=== PATIENT | female | born 1985 | race Two or more races ===

== ENCOUNTER 2019-01-08 06:15 | Inpatient (IN) | payer OTHER ==
[2019-01-08] MEDS: ELECTROLYTE-148 SOLN 1,000 ML IV SCH (06:30)
[2019-01-08 06:48] VITALS: BMI 27.1
[2019-01-08] MEDS ORDERED: OXYTOCIN 20 UNITS in 0.9% NS 40 UNIT/2,000 ML INFUS.BAG IV ONE (07:33)
[2019-01-08] MEDS ORDERED: DEXAMETHASONE SOD PHOSPHATE 4 MG/1 ML VIAL ONE (07:37)
[2019-01-08] MEDS ORDERED: PHENYLEPHRINE HCL 10 MG/1 ML SINGLE DOSE VIAL ONE (07:37)
[2019-01-08] MEDS ORDERED: morphine SULFATE/PF 0.5 MG/ML (2cc Syringe - QUVA) ONE (07:41)
[2019-01-08] MEDS ORDERED: CITRIC ACID/SODIUM CITRATE 30 ML UNIT-DOSE CUP PO ONE (07:49)
[2019-01-08] MEDS ORDERED: OXYTOCIN 10 UNITS/ML VIAL ONE (08:15)
--- NOTE | 2019-01-08 09:21 | HP ---
Past Medical History - Admission Chief Complaint: repeat lt c s History of Present Illness: repeat lt c s History Source: Patient Limitations to Obtaining History: No Limitations - Past Medical History URGENT CARE: No: Alzheimer's, CVA, Dementia, Migraine, Multiple Sclerosis, Peripheral Neuropathy, Parkinson's, Seizure, Syncope, TIA, Vertigo, Other Cardiovascular: No: AFIB, Aneurysm, Aortic Insufficiency, Aortic Stenosis, CAD, CHF, Deep Vein Thrombosis, HTN, Hyperlipdemia, RI, Mitral Insufficiency, Mitral Stenosis, Murmur, Pulmonary Hypertension, Other Pulmonary: No: Asthma, Bronchitis, Cancer, COPD, O2 Dependent, Pneumonia, Previously Intubated, Pulmonary Embolus, Pulmonary Fibrosis, Sleep Apnea, Other Gastrointestinal: No: Ascites, Cancer, Constipation, Crohn's Disease, Diverticulitis, Diverticulosis, Esophageal Varices, Gastritis, GERD, GI Bleed, Hemorrhoids, Hiatal Hernia, Inflamatory Bowel Disease, Irritable Bowel Disease, Pancreatitis, Peptic Ulcer Disease, Ulcerative Colitis, Other Hepatobiliary: No: Cirrhosis, Cholelithiasis, Cholecystitis, Choledocholithiasis , Hepatitis A, Hepatitis B, Hepatitis C, Other Renal/: No: Renal Failure, Renal Inusuff, BPH, Cancer, Hematuria, Hemodialysis , Neurogenic Bladder, Renal Calculi, UTI, Other Reproductive: No: Ectopic , Endometriosis, Fibroids, PID, Polycystic Ovary Syndrome, Postmenopausal, Other ...: 2 ...Para: 1 ...Term: 1 ...: 0 ...Spon : 0 ...Induced : 0 ...Multiple Gestation: 0 ...LMP: 03/23/18 ...EDC by Sono: 01/11/19 Heme/Onc: No: Anemia, B12 Deficiency, Bleeding Disorder, Cancer, Current Chemotherapy, Current Radiation Therapy, Hemochromatosis, Hypercoaguable State, Myeloproliferative Synd, Sickle Cell Disease, Sickle Cell Trait, Thrombocytopenia, Other Infectious Disease: No: AIDS, C-Diff, Herpes Zoster, HIV, MRSA, STD's, Tuberculosis, VREF, Other Psych: No: Addictions, Anxiety, Bipolar, Depression, Panic, Psychosis, Schizophrenia, Other Musculoskeletal: No: Bursitis, Chronic low back pain, Hemiparesis, Hemiplegia, Osteoarthritis, Paraplegia, Other Rheumatology: No: Fibromyalgia, Gout, Lupus, Rheumatoid Arthritis, Sarcoidosis, Vasculitis, Other ENT: No: Allergic Rhinitis, Sinusitis, Other Endocrine: No: Everetts's Disease, Erlanger's Disease, Diabetes Insipidus, Diabetes Mellitus, Hyperparathyroidism, Hyperthyroidism, Hypothyroidism, Osteopenia, SIADH, Other Dermatology: No: Basal Cell, Cellulitis, Eczema, Melanoma, Psoriasis, Squamous Cell, Other - Past Surgical History Past Surgical History: Yes: Hx Myomectomy: No Hx Transabdominal Cerclage: No - Advance Directives Advance Directives: Yes: Living Will - Smoking History Smoking history: Never smoked Have you smoked in the past 12 months: No - Alcohol/Substance Use Hx Alcohol Use: No History of Substance Use: reports: None - Social History Usual Living Arrangement: Yes: With Spouse Do you think of yourself as: Straight/Heterosexual ADL: Independent History of Recent Travel: No Home Medications - Allergies Allergies/Adverse Reactions: Allergies Allergy/AdvReac Type Severity Reaction Status Date / Time No Known Allergies Allergy Verified 01/08/19 07:02 - Home Medications Home Medications: Ambulatory Orders Pnv No.95/Ferrous Fum/Folic AC [ Vitamin Tablet] 1 each PO DAILY Family Medical History Family History: Denies Review of Systems - Review of Systems Constitutional: reports: No Symptoms Eyes: reports: No Symptoms HENT: reports: No Symptoms Neck: reports: No Symptoms Cardiovascular: reports: No Symptoms Respiratory: reports: No Symptoms Gastrointestinal: reports: No Symptoms Genitourinary: reports: No Symptoms Breasts: reports: No Symptoms Reported Musculoskeletal: reports: No Symptoms Integumentary: reports: No Symptoms Neurological: reports: No Symptoms Endocrine: reports: No Symptoms Hematology/Lymphatic: reports: No Symptoms Psychiatric: reports: No Symptoms Physical Exam - Maternity Vital Signs: Vital Signs Temperature 98.6 F 01/08/19 06:15 Pulse Rate 106 H 01/08/19 06:15 Respiratory Rate 18 01/08/19 06:15 Blood Pressure 99/64 01/08/19 06:15 O2 Sat by Pulse Oximetry (%) Constitutional: Yes: Well Nourished, No Distress, Calm Eyes: Yes: WNL, Conjunctiva Clear, EOM Intact HENT: Yes: WNL, Atraumatic, Normocephalic Neck: Yes: WNL, Supple, Trachea Midline Cardiovascular: Yes: WNL, Regular Rate and Rhythm Lungs: Clear to auscultation Breast(s): Yes: WNL - Abdominal Exam/OB Fundal Height: 38 Number of Fetuses: Single Presentation: Vertex Contractions: Yes Regularity: Irregular Intensity: Mild Monitor Mode: External Heart Rate Location: [facility] Category: I Accelerations: Uniform Decelerations: None - Vaginal Exam/OB Vaginal Bleediing: No Speculum Exam: No Dilatation (cm): 1 Amniotic Membrane Status: Intact Presentation: Vertex/Position Station: -2 - Physical Exam Musculoskeletal: Yes: WNL Extremities: Yes: WNL Edema: No Edema: LUE: 1+, RUE: 1+, LLE: 1+, RLE: 1+ Integumentary: Yes: WNL Deep Tendon Reflex Grade: Normal +2 ...Motor Strength: WNL Psychiatric: Yes: WNL, Alert, Oriented Hemorrhage Risk Assessment - Risk Factors Medium Risk Factors: Yes: Prior , uterine surgery,or multiple laparotomies Risk Score: 1 Risk Level: Medium Risk Assessment/Plan for repeat lt c s
[2019-01-08] MEDS ORDERED: oxyCODONE HCL 5 MG TABLET PO PRN ×2 (09:25)
[2019-01-08] MEDS ORDERED: METHYLERGONOVINE MALEATE 0.2 MG/1 ML AMP IM PRN (09:25)
[2019-01-08] MEDS ORDERED: IBUPROFEN 800 MG/8 ML IJ IVPB PRN (09:25)
[2019-01-08] MEDS ORDERED: SENNOSIDES/DOCUSATE COMBO (SENNA PLUS) TABLET (UD) PO PRN (09:25)
--- NOTE | 2019-01-08 09:25 | OP ---
Operative Note - Note: Operative Date: 01/08/19 Pre-Operative Diagnosis: repeat lt c s Operation: repeat lt c s Findings: no adhesion Post-Operative Diagnosis: Same as Pre-op Surgeon: Sorin Hernandez Geologist Petroleum: Jostin Brady Anesthesia: Spinal Estimated Blood Loss (mls): 500 Operative Report Dictated: Yes
[2019-01-08] MEDS ORDERED: D5W-LR W/ 20 UNITS OXYTOCIN 20 UNIT/1,000 ML INFUS.BAG IV SCH (09:30)
[2019-01-08] MEDS ORDERED: OXYTOCIN 20 UNITS in 0.9% NS 20 UNIT/1,000 ML INFUS.BAG IV ONE (09:31)
[2019-01-08] MEDS: OXYTOCIN 20 UNITS in 0.9% NS 20 UNIT/1,000 ML INFUS.BAG IV SCH (09:35)
[2019-01-09] MEDS: ACETAMINOPHEN 325 MG TABLET (FP) PO PRN ×2 (04:56→12:53)
[2019-01-09] MEDS: IBUPROFEN 600 MG TABLET (FP) PO PRN ×2 (04:56→12:54)
[2019-01-09] MEDS: SIMETHICONE 80 MG TAB.CHEW (FP) PO PRN ×2 (04:56→12:53)
--- NOTE | 2019-01-09 07:15 | PN ---
Progress Note (short form) - Note Progress Note: Anesthesia Post Op Note Pt s/p spinal for repeat c/section Pt denies h/a, back pain, no n/v Ambulating well, good pain control no urinary retention VSS no apparent anesthesia complications Haley Haro.
[2019-01-09 08:46] LABS: BASO % 0.3 % (0-2.0); EOS % 0.7 % (0-4.5); HEMATOCRIT 29.1 % (32.4-45.2); HEMOGLOBIN 9.6 GM/dL (10.7-15.3); LYMPH % 27.3 % (8-40); MCH 26.7 pg (25.7-33.7); MCHC 32.9 g/dl (32.0-36.0); MEAN PLT VOLUME 9.3 fl (7.5-11.1); MONO % 5.1 % (3.8-10.2); NEUT % 66.6 % (42.8-82.8); PLATELET COUNT 161 K/MM3 (134-434); RBC 3.59 M/mm3 (3.60-5.2); WHITE BLOOD COUNT 8.1 K/mm3 (4.0-10.0)
[2019-01-09] MEDS ORDERED: BISACODYL 10 MG SUPP.RECT RC PRN (09:25)
[2019-01-09] MEDS ORDERED: DIPHTH,PERTUSS(ACELL),TET 0.5 ML DISP.SYRIN IM ONE (10:00)
[2019-01-09] MEDS ORDERED: FLU VACC QS2019-20(6MOS UP)/PF 60 MCG/0.5 ML SYRINGE IM ONE (10:00)
[2019-01-09] MEDS ORDERED: FLU VACCINE QUAD 60 MCG/0.5 ML (MDV 19-20) IM ONE (10:30)
[2019-01-09] MEDS: ENOXAPARIN NA (PORCINE) 40 MG/0.4 ML DISP.SYRIN SQ SCH (10:45)
--- NOTE | 2019-01-09 19:49 | PN ---
Post Progress Note Post Day: 1 Type of Delivery: Repeat C/S Vital Signs: Vital Signs Temperature 98.0 F 01/09/19 09:00 Pulse Rate 68 01/09/19 09:00 Respiratory Rate 18 01/09/19 09:00 Blood Pressure 100/58 L 01/09/19 09:00 O2 Sat by Pulse Oximetry (%) 100 01/08/19 09:50 Breast Exam: Yes: Soft Uterus: Yes: Fundus Firm, Fundus below umbilicus Incision: Yes: Dressing dry and intact, Sutures intact Abdomen/GI: Yes: Abdomen soft, Passing flatus, Tolerating PO Lochia: Yes: Serosa Lochia, amount: Small Extremities: Yes: Calves non-tender Perineum: Yes: Intact Activity: Ambulating - Labs Labs: CBC WBC 8.1 K/mm3 (4.0-10.0) 01/09/19 08:05 RBC 3.59 M/mm3 (3.60-5.2) L 01/09/19 08:05 Hgb 9.6 GM/dL (10.7-15.3) L 01/09/19 08:05 Hct 29.1 % (32.4-45.2) L 01/09/19 08:05 MCV 81.0 fl (80-96) 01/09/19 08:05 MCH 26.7 pg (25.7-33.7) 01/09/19 08:05 MCHC 32.9 g/dl (32.0-36.0) 01/09/19 08:05 RDW 15.0 % (11.6-15.6) 01/09/19 08:05 Plt Count 161 K/MM3 (134-434) 01/09/19 08:05 MPV 9.3 fl (7.5-11.1) 01/09/19 08:05 Absolute Neuts (auto) 5.4 K/mm3 (1.5-8.0) 01/09/19 08:05 Neutrophils % 66.6 % (42.8-82.8) 01/09/19 08:05 Lymphocytes % 27.3 % (8-40) 01/09/19 08:05 Monocytes % 5.1 % (3.8-10.2) 01/09/19 08:05 Eosinophils % 0.7 % (0-4.5) 01/09/19 08:05 Basophils % 0.3 % (0-2.0) 01/09/19 08:05 Nucleated RBC % 0 % (0-0) 01/09/19 08:05 Other Findings, Remarks: dressing removedd , no infection
[2019-01-09] MEDS: ELECTROLYTE-148 SOLN 1,000 ML IV SCH (21:10)
[2019-01-09] MEDS: OXYTOCIN 20 UNITS in 0.9% NS 20 UNIT/1,000 ML INFUS.BAG IV SCH (21:10)
[2019-01-10] MEDS: ACETAMINOPHEN 325 MG TABLET (FP) PO PRN ×2 (08:23→15:25)
[2019-01-10] MEDS: SIMETHICONE 80 MG TAB.CHEW (FP) PO PRN ×2 (08:23→15:24)
[2019-01-10] MEDS: IBUPROFEN 600 MG TABLET (FP) PO PRN ×2 (08:23→15:25)
[2019-01-10] MEDS: ENOXAPARIN NA (PORCINE) 40 MG/0.4 ML DISP.SYRIN SQ SCH (09:34)
--- NOTE | 2019-01-10 10:21 | PN ---
Post Progress Note Post Day: 2 Type of Delivery: Repeat C/S Vital Signs: Vital Signs Temperature 98.5 F 01/09/19 20:56 Pulse Rate 68 01/09/19 20:56 Respiratory Rate 18 01/09/19 20:56 Blood Pressure 100/63 01/09/19 20:56 O2 Sat by Pulse Oximetry (%) 100 01/08/19 09:50 Breast Exam: Yes: Soft Uterus: Yes: Fundus Firm Incision: Yes: Dressing dry and intact Abdomen/GI: Yes: Abdomen soft, Passing flatus, Tolerating PO Lochia: Yes: Serosa Lochia, amount: Small Extremities: Yes: Calves non-tender Perineum: Yes: Intact Activity: Ambulating - Labs Labs: CBC WBC 8.1 K/mm3 (4.0-10.0) 01/09/19 08:05 RBC 3.59 M/mm3 (3.60-5.2) L 01/09/19 08:05 Hgb 9.6 GM/dL (10.7-15.3) L 01/09/19 08:05 Hct 29.1 % (32.4-45.2) L 01/09/19 08:05 MCV 81.0 fl (80-96) 01/09/19 08:05 MCH 26.7 pg (25.7-33.7) 01/09/19 08:05 MCHC 32.9 g/dl (32.0-36.0) 01/09/19 08:05 RDW 15.0 % (11.6-15.6) 01/09/19 08:05 Plt Count 161 K/MM3 (134-434) 01/09/19 08:05 MPV 9.3 fl (7.5-11.1) 01/09/19 08:05 Absolute Neuts (auto) 5.4 K/mm3 (1.5-8.0) 01/09/19 08:05 Neutrophils % 66.6 % (42.8-82.8) 01/09/19 08:05 Lymphocytes % 27.3 % (8-40) 01/09/19 08:05 Monocytes % 5.1 % (3.8-10.2) 01/09/19 08:05 Eosinophils % 0.7 % (0-4.5) 01/09/19 08:05 Basophils % 0.3 % (0-2.0) 01/09/19 08:05 Nucleated RBC % 0 % (0-0) 01/09/19 08:05 Assessment/Plan for dc home tomorrow
--- NOTE | 2019-01-10 10:25 | DS ---
Physical Exam-WATER FILTRATION TECHNICIAN Vital Signs: Vital Signs Temperature 98.5 F 01/09/19 20:56 Pulse Rate 68 01/09/19 20:56 Respiratory Rate 18 01/09/19 20:56 Blood Pressure 100/63 01/09/19 20:56 O2 Sat by Pulse Oximetry (%) 100 01/08/19 09:50 Constitutional: Yes: Well Nourished, No Distress, Calm Eyes: Yes: WNL, Conjunctiva Clear, EOM Intact HENT: Yes: WNL, Atraumatic, Normocephalic Neck: Yes: WNL, Supple, Trachea Midline Cardiovascular: Yes: WNL, Regular Rate and Rhythm Respiratory: Yes: WNL, Regular, CTA Bilaterally Gastrointestinal: Yes: WNL, Normal Bowel Sounds, Soft ...Rectal Exam: Yes: WNL Renal/: Yes: WNL Pelvis: Yes: WNL External Genitalia: Yes: Normal Internal Exam Deferred: No Vaginal Exam: Yes: Normal Cervix: Yes: Normal Uterus: Yes: Normal Adnexa: Normal: Bilateral ....Post : Yes: Uterus firm, Uterus non-tender Breast(s): Yes: WNL Musculoskeletal: Yes: WNL Extremities: Yes: WNL Edema: LUE: 1+, RUE: 1+, LLE: 1+, RLE: 1+ Integumentary: Yes: WNL Wound/Incision: Yes: Clean/Dry, Well Approximated Neurological: Yes: WNL, Alert, Oriented ...Motor Strength: WNL Psychiatric: Yes: WNL, Alert, Oriented Labs: CBC, BMP 01/09/19 08:05 Delivery - Delivery Section: Repeat Type of Anesthesia: Spinal Episiotomy/Laceration: None EBL (cc): 500 Delivery, Single - Stages of Labor Date of Delivery: 01/08/19 Time of Delivery: 08:18 Time Placenta Delivered: 08:19 - 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: Yes Name: Hazel Larsen Infant Gender: Female Weight: 3.232 kg Position: OP Total Hours ROM (Hrs/Mins): 2min - 1 Minute Total Score: 9 5 Minutes Total Score: 9 - Feeding Plan Initial Plan: Elected not to breastfeed exclusively throughout hospitalization Discharge Summary Problems reviewed: Yes Reason For Visit: SCHEDULED Procedures: Principal: repeat lt c s Other Procedures: repeat lt c s Hospital Course: uneeventful Health Concerns: none Plan of Treatment: oob as much as possible Goals: return to work in 8 weeks Condition: Good - Instructions Diet, Activity, Other Instructions: regular, routine post c section care Disposition: AGAINST MEDICAL ADVICE - Home Medications Comprehensive Discharge Medication List: Ambulatory Orders Pnv No.95/Ferrous Fum/Folic AC [ Vitamin Tablet] 1 each PO DAILY Prescription Drug Monitoring Program (I-STOP) results: I-STOP reviewed and no issues identified
--- NOTE | 2019-01-10 11:51 | OP ---
DATE OF OPERATION: 01/08/2019 PREOPERATIVE DIAGNOSIS: Repeat low transverse section, scoliosis. POSTOPERATIVE DIAGNOSIS: Repeat low transverse section. PROCEDURE: Repeat low transverse section. SURGEON: Sorin Wong MD PICTURE COPYIST: RAFITA Small. ANESTHESIA: Spinal anesthesia by Arielle Lee MD INDICATIONS: This is a 33-year-old female patient 39 weeks , previous low transverse section who was taken to the OR for a repeat low transverse section. All risks, benefits, and alternatives explained to the patient. DESCRIPTION OF PROCEDURE: Patient was placed on the operating room table in supine position after spinal anesthesia was obtained. The patient's abdomen and pelvis were prepped and draped in the usual sterile manner. Patient has scoliosis, and it was difficult getting spinal anesthesia, but after 5-10 minutes attempt, no complications, spinal anesthesia was obtained. Pfannenstiel incision was made. Incision was made through the skin and subcutaneous tissue until the fascia was nicked in the midline. Fascia extended bilaterally. Intraperitoneal cavity was entered. Bladder flap was created. Low transverse segment uterus was entered. Baby delivered from OP presentation. Baby was handed over to the pitch worker after the umbilical cord was doubly clamped and cut. Cord blood gas obtained. Placenta was removed. Uterus was closed in a single layer. First layer interlocking Vicryl suture with good hemostasis. Both gutters were cleaned. Both ovaries, fallopian tubes, uterus are within normal limits. No complications. The patient tolerated the procedure well. Bladder flap was closed. Peritoneum was closed. Fascia was closed. Skin was closed. Transferred to recovery room in stable condition. SORIN WONG MD [id number]
--- NOTE | 2019-01-10 16:36 | PATH ---
Surgical Pathology Report Patient Name: ENID ESPINOZA [facility]. Rec. 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 Electronically Signed Maki Byers M.D. Gross Description The specimen is received fresh labeled placenta and is a 475 gram, 20.0 x 18.5 x 2.3 cm. placenta with attached membranes and umbilical cord. The attached membranes are anguiano, translucent with focal opacities and insert marginally. The umbilical cord measures 24 cm. in length and averages 1.1 cm. in diameter. The cord inserts eccentrically, 7.5 cm. to the nearest margin. No true knots or strictures are identified. Cut surface of the umbilical cord reveals 3 vessels. The surface is gardner-blue with minimal fibrin deposition and appropriate caliber vessels. The maternal surface is red-brown with focal defects. Sectioning reveals red-brown, spongy parenchyma. No lesions are identified. Stamping Die Try Out Worker sections are submitted in three cassettes as follows: 1- membrane rolls and umbilical cord; 2-3- full thickness sections of placenta. 01/09/2019 [place]udi01/09/2019
[2019-01-11] MEDS: ACETAMINOPHEN 325 MG TABLET (FP) PO PRN ×2 (00:27→08:44)
[2019-01-11] MEDS: IBUPROFEN 600 MG TABLET (FP) PO PRN ×2 (00:28→08:44)
[2019-01-11] MEDS: SIMETHICONE 80 MG TAB.CHEW (FP) PO PRN (08:44)
[2019-01-11 09:10] LABS: BASO % 0.4 % (0-2.0); EOS % 2.5 % (0-4.5); HEMATOCRIT 29.8 % (32.4-45.2); HEMOGLOBIN 9.8 GM/dL (10.7-15.3); LYMPH % 36.7 % (8-40); MCH 26.8 pg (25.7-33.7); MCHC 32.9 g/dl (32.0-36.0); MEAN CELL VOLUME 81.4 fl (80-96); MEAN PLT VOLUME 9.2 fl (7.5-11.1); NEUT % 54.4 % (42.8-82.8); PLATELET COUNT 210 K/MM3 (134-434); RBC 3.66 M/mm3 (3.60-5.2); RDW 15.3 % (11.6-15.6); WHITE BLOOD COUNT 6.4 K/mm3 (4.0-10.0)
[2019-01-11 09:13] VITALS: BP 123/67; PULSE 65; TEMP 98.2
[2019-01-11] MEDS: ENOXAPARIN NA (PORCINE) 40 MG/0.4 ML DISP.SYRIN SQ SCH (10:30)
== END 2019-01-11 11:20 | disposition home or self-care (01) | DRG 788 ==
LOC: JLDR 06:15 → J3W 10:40
PROVIDERS: ADMIT Obstetrics & Gynecology; ATTEND Obstetrics & Gynecology
PROC: 10D00Z1 Extraction of Products of Conception, Low, Open Approach (ICD-10-PCS; principal; 2019-01-08)
DX: O34.211 Maternal care for low transverse scar from previous cesarean delivery (principal); N85.8 Other specified noninflammatory disorders of uterus; Z3A.39 39 weeks gestation of pregnancy; Z37.0 Single live birth
CPT/HCPCS: 36415; 85025; 90686; 90715